=== PATIENT | female | born 1975 | race Caucasian/White ===

== ENCOUNTER 2017-11-22 06:39 | Day surgery (SDC) | payer MEDICARE, MEDICAID ==
[2017-11-22] MEDS ORDERED: Lactated Ringers 1,000 ML IV SCH (07:15)
[2017-11-22] MEDS ORDERED: Sodium Chloride 0.9% 10 ML Syringe FLUSH PRN (07:15)
[2017-11-22] MEDS ORDERED: Midazolam 1 MG/ML 2 ML SDV IV ONE (08:52)
[2017-11-22] MEDS ORDERED: Propofol 200 MG/20 ML SDV IV ONE (08:52)
--- NOTE | 2017-11-22 08:54 | PCM.HPR ---
H & P Addendum review - H & P Addendum Review Date of Original H & P: 11/19/17 Date Reviewed: 11/22/17 Time Reviewed: 08:54 Patient was Examined: No Changes (No further bleeding over the weekend)
--- NOTE | 2017-11-22 09:16 | PCM.OPNOTE ---
- General Post-Op/Procedure Note Date of Surgery/Procedure: 11/22/17 Operative Procedure(s): Colonoscopy Findings: Normal Pre Op Diagnosis: Hematochezia Post-Op Diagnosis: Same Anesthesia Technique: MAC Primary Surgeon: Matthew Medellin Anesthesia Provider: Winnie Koenig Complications: None Condition: Good
[2017-11-22 11:22] VITALS: BP 92/65
--- NOTE | 2017-11-22 14:10 | OR ---
DATE OF OPERATION: 11/22/2017 SURGEON: Matthew Medellin MD PREOPERATIVE DIAGNOSIS: Hematochezia. POSTOPERATIVE DIAGNOSIS: Normal colonoscopy. PROCEDURE PERFORMED: Colonoscopy. ANESTHESIA: IV sedation. DESCRIPTION OF PROCEDURE: The patient was brought to the procedure room, where she was placed on her left side and IV sedation administered. Digital rectal exam was performed, which was normal. The colonoscope was inserted and advanced to the level of the cecum without difficulty. Cecal position was confirmed by identifying the appendiceal lumen and ileocecal valve. Prep was good and surfaces were well visualized. Upon withdrawing the scope, the ascending, transverse, and descending colon were normal in appearance. The sigmoid colon and rectum were normal. Retroflexion was normal. There were no enlarged internal hemorrhoids or other sources of bleeding identified. Air was removed and the scope withdrawn. The patient tolerated the procedure well and returned to recovery in stable condition. Recommend routine colon screening at age 51. /[id number] CHIQUITA/ABILIO
== END 2017-11-22 11:00 | disposition home or self-care (01) ==
LOC: FB.SDS 06:39
PROVIDERS: ATTEND Surgery
DX: K92.1 Melena (principal); Z88.0 Allergy status to penicillin; Z88.8 Allergy status to other drugs, medicaments and biological substances; Z79.899 Other long term (current) drug therapy
CPT/HCPCS: 45378; 81025; J7120; 00811-QZ; J2250; J2704

== ENCOUNTER 2020-08-27 06:15 | Emergency (ER) | payer MEDICARE, MEDICAID ==
--- NOTE | 2020-08-27 07:18 | EDM.PDOC ---
ED HPI GENERAL MEDICAL PROBLEM - General Chief Complaint: Neurological Problem Stated Complaint: Seizure Time Seen by Provider: 08/27/20 07:11 Source of Information: Reports: Other (Caregiver) History Limitations: Reports: Other (Down's syndrome) - History of Present Illness INITIAL COMMENTS - FREE TEXT/NARRATIVE: Patient was sitting on the floor watching TV this morning at 0530. According to the [facility] staff, patient then made a gurgling sound, tipped over to the left striking her head on the floor three times, then had what appeared to be tonic clonic movements for 2 minutes. Caregiver who is at bedside states she has done this sort of thing numerous times in the past. Patient has a history of Down's Syndrome and pseudoseizures. Onset: Today Onset Date: 08/27/20 Onset Time: 05:30 Location: Reports: Head - Related Data Allergies Allergy/AdvReac Type Severity Reaction Status Date / Time Penicillins Allergy Hives Verified 08/27/20 08:21 phenytoin sodium Allergy Go, Edema Verified 08/27/20 08:20 [From Dilantin] phenytoin sodium extended Allergy Rash, Edema Verified 08/27/20 08:20 [From Dilantin] Seasonal Allergies Allergy Runny Uncoded 08/27/20 08:20 nose, Sneezing, Watery eyes Home Meds: Home Meds Cetirizine [ZyrTEC] 10 mg PO DAILY 08/07/15 [History] Levothyroxine [Synthroid] 50 mcg PO ACBREAKFAST 08/07/15 [History] Omeprazole 20 mg PO ACBREAKFAST 08/07/15 [History] Triamcinolone Acetonide [Kenalog 0.1% Crm] 1 applic TOP BID PRN 11/19/17 [History] . Adult Multivitamin Gummies 2 tab CHEW DAILY 08/27/20 [History] .Calcium 600 Mg 1 tab PO BID 08/27/20 [History] .Fluticasone Prop 50 Mcg Aston 1 spray NASBOTH DAILY 08/27/20 [History] Alendronate Sodium [Fosamax] 70 mg PO Q7D 08/27/20 [History] Bisacodyl [Laxative Suppository] 10 mg RC DAILY PRN 08/27/20 [History] Chlorhexidine Gluconate 4% [Hibiclens] 1 applic TOP BID 08/27/20 [History] Cholecalciferol (Vitamin D3) [Vitamin D3] 400 unit PO BIDMEALS 08/27/20 [History] Diphenhyd/Lidocaine/Nystatin [First-Bxn Mouthwash] 1 applic TOP QID 08/27/20 [History] Docusate Sodium [Stool Softener] 10 ml PO BID 08/27/20 [History] Folic Acid 1 mg PO ASDIRECTED 08/27/20 [History] Ketoconazole [Ketoconazole 2%] 1 applic TOP Q7D 08/27/20 [History] Methotrexate 10 mg PO Q7D 08/27/20 [History] Mirtazapine 45 mg PO BEDTIME 08/27/20 [History] QUEtiapine [SEROquel] 300 mg PO BEDTIME 08/27/20 [History] polyethylene glycoL 3350 [Gavilax] 17 gm PO DAILY 08/27/20 [History] traZODone 100 mg PO BEDTIME 08/27/20 [History] Past Medical History Other HEENT History: TEAR DUCT SURGERY Other Cardiovascular History: CONGENITAL HEART SURGERY Respiratory History: Reports: Asthma Gastrointestinal History: Reports: GERD Neurological History: Reports: Other (See Below) Other Neuro History: DOWN SYNDROME, pseudoseizures Endocrine/Metabolic History: Reports: Hypothyroidism Dermatologic History: Reports: Other (See Below) Other Dermatologic History: DERMATITIS ON FACE - Past Surgical History HEENT Surgical History: Reports: Myringotomy w Tube(s), Other (See Below) Other HEENT Surgeries/Procedures: TEAR DUCT SURGERY Cardiovascular Surgical History: Reports: Other (See Below) Other Cardiovascular Surgeries/Procedures: LEAKY VALVE AN Musculoskeletal Surgical History: Reports: Other (See Below) Other Musculoskeletal Surgeries/Procedures:: BUNIONECTOMY LT FOOT Social & Family History - Family History Family Medical History: Noncontributory - Caffeine Use Caffeine Use: Reports: None ED ROS GENERAL - Review of Systems Review Of Systems: Unable To Obtain Reason Not Obtained: Intellectual Disability ED EXAM, GENERAL - Physical Exam Exam: See Below Exam Limited By: No Limitations General Appearance: Alert, WD/WN, No Apparent Distress Eye Exam: Bilateral Eye: EOMI, PERRL Nose: Normal Inspection Throat/Mouth: No Airway Compromise Head: Normocephalic, Other (Left forehead swelling) Neck: Non-Tender Respiratory/Chest: No Respiratory Distress, Lungs Clear, Normal Breath Sounds Cardiovascular: Regular Rate, Rhythm, No Murmur GI/Abdominal: Normal Bowel Sounds, Soft, Non-Tender, No Distention Back Exam: Normal Inspection Extremities: Normal Inspection, Normal Range of Motion Neurological: Alert, No Motor/Sensory Deficits Skin Exam: Warm, Dry, Intact #1 Interpretation EKG Date: 08/27/20 Time: 07:38 Rhythm: NSR Rate (Beats/Min): 63 Overton: Normal P-Wave: Present QRS: Other (RBBB and LAFB) ST-T: Other (No ST elevation per [facility] (Dr. Peace)) #2 Interpretation EKG Date: 08/27/20 Time: 10:27 Rhythm: NSR Rate (Beats/Min): 76 Overton: Normal P-Wave: Present QRS: Other (RBBB and LAFB) ST-T: Elevated (probable normal early repolarization pattern) QT: Normal Comparison: No Change (from EKG #1 done earlier today) Course - Vital Signs Last Recorded V/S: Last Vital Signs Temp 35.3 C L 08/27/20 06:20 Pulse 70 08/27/20 06:20 Resp 16 08/27/20 06:20 BP 94/38 L 08/27/20 06:20 Pulse Ox 100 08/27/20 06:20 - Orders/Labs/Meds Orders: Active Orders 24 hr Category Date Time Status EKG Documentation Completion [RC] ASDIRECTED Care 08/27/20 07:18 Active EKG Documentation Completion [RC] ASDIRECTED Care 08/27/20 08:56 Active Cervical Spine wo Cont [CT] Stat Exams 08/27/20 07:10 Taken Head wo Cont [CT] Stat Exams 08/27/20 07:10 Taken UA W/MICROSCOPIC [URIN] Stat Lab 08/27/20 06:44 Ordered EKG 12 Lead [EK] Stat Ther 08/27/20 07:18 Ordered EKG 12 Lead [EK] Urgent Ther 08/27/20 10:00 Ordered Labs: Laboratory Tests 08/27/20 08/27/20 08/27/20 Range/Units 06:55 06:55 06:55 WBC 4.8 (4.5-12.0) X10-3/uL RBC 3.53 (3.23-5.20) x10(6)uL Hgb 12.4 (11.5-15.5) g/dL Hct 36.1 (30.0-51.3) % MCV 102.2 H (80-96) fL MCH 35.1 H (27.7-33.6) pg MCHC 34.4 (32.2-35.4) g/dL RDW 13.6 (11.5-15.5) % Plt Count 183 (125-369) X10(3)uL MPV 8.2 (7.4-10.4) fL Neut % (Auto) 57.4 (46-82) % Lymph % (Auto) 34.2 (13-37) % Griggs % (Auto) 6.8 (4-12) % Eos % (Auto) 1 (1.0-5.0) % Baso % (Auto) 1 (0-2) % Neut # (Auto) 2.8 (1.6-8.3) # Lymph # (Auto) 1.6 (0.6-5.0) # Griggs # (Auto) 0.3 (0.0-1.3) # Eos # (Auto) 0.0 (0.0-0.8) # Baso # (Auto) 0.0 (0.0-0.2) # Sodium 141 (135-145) mmol/L Potassium 3.9 (3.5-5.3) mmol/L Chloride 104 (100-110) mmol/L Carbon Dioxide 29 (21-32) mmol/L BUN 11 (7-18) mg/dL Creatinine 0.9 (0.55-1.02) mg/dL Est Cr Clr Drug Dosing TNP Estimated GFR (MDRD) > 60 (>60) BUN/Creatinine Ratio 12.2 (9-20) Glucose 95 (80-116) mg/dL Calcium 8.4 L (8.6-10.2) mg/dL Total Bilirubin 0.5 (0.1-1.3) mg/dL AST 31 H (5-25) IU/L ALT 34 (12-36) U/L Alkaline Phosphatase 46 L (56-112) IU/L Troponin I 8.6 (4.0-60.3) pg/mL Total Protein 6.9 (6.0-8.0) g/dL Albumin 3.2 L (3.5-5.2) g/dL Globulin 3.7 g/dL Albumin/Globulin Ratio 0.9 10//20 Range/Units 10:34 WBC (4.5-12.0) X10-3/uL RBC (3.23-5.20) x10(6)uL Hgb (11.5-15.5) g/dL Hct (30.0-51.3) % MCV (80-96) fL MCH (27.7-33.6) pg MCHC (32.2-35.4) g/dL RDW (11.5-15.5) % Plt Count (125-369) X10(3)uL MPV (7.4-10.4) fL Neut % (Auto) (46-82) % Lymph % (Auto) (13-37) % Griggs % (Auto) (4-12) % Eos % (Auto) (1.0-5.0) % Baso % (Auto) (0-2) % Neut # (Auto) (1.6-8.3) # Lymph # (Auto) (0.6-5.0) # Griggs # (Auto) (0.0-1.3) # Eos # (Auto) (0.0-0.8) # Baso # (Auto) (0.0-0.2) # Sodium (135-145) mmol/L Potassium (3.5-5.3) mmol/L Chloride (100-110) mmol/L Carbon Dioxide (21-32) mmol/L BUN (7-18) mg/dL Creatinine (0.55-1.02) mg/dL Est Cr Clr Drug Dosing Estimated GFR (MDRD) (>60) BUN/Creatinine Ratio (9-20) Glucose (80-116) mg/dL Calcium (8.6-10.2) mg/dL Total Bilirubin (0.1-1.3) mg/dL AST (5-25) IU/L ALT (12-36) U/L Alkaline Phosphatase (56-112) IU/L Troponin I 8.8 (4.0-60.3) pg/mL Total Protein (6.0-8.0) g/dL Albumin (3.5-5.2) g/dL Globulin g/dL Albumin/Globulin Ratio - Radiology Interpretation Free Text/Narrative:: CT Head s/ contrast: IMPRESSION: No acute bleed or mass or stroke is shown. No fracture. There is diffuse underlying cerebral atrophy. Finalized by: Michael Gates MD on 08/27/2020 8:[address] C-spine s/ contrast: IMPRESSION: I do not see an abnormality related to the recent trauma. Specifically, no acute bony fracture or abnormal soft tissue swelling. There are diffuse degenerative change as outlined above. The patient likely has spinal canal stenosis at the C4-5 level. If the patient has persistent symptoms referable to the cervical spine or if there is any concern for possible underlying myelopathy or cervical spinal cord injury/contusion, consider an MRI scan for further evaluation. There is some generalized neural foraminal narrowing as outlined above. No level has a high-grade neural foraminal stenosis however. Finalized by: Michael Gates MD on 08/27/2020 8:46 AM CDT - Re-Assessments/Exams Free Text/Narrative Re-Assessment/Exam: 08/27/20 10:[address] Peace ([facility]), he did not believe patient's EKG was consistent with STEMI. 08/27/20 11:07 No seizure activity noted in the ED. Mental status at baseline. Departure - Departure Time of Disposition: 11:07 Disposition: Home, Self-Care 01 Condition: Good Clinical Impression: Syncope Qualifiers: Syncope type: unspecified Qualified Code(s): R55 - Syncope and collapse Minor head injury Qualifiers: Encounter type: initial encounter Qualified Code(s): S09.90XA - Unspecified injury of head, initial encounter - Discharge Information *PRESCRIPTION DRUG MONITORING PROGRAM REVIEWED*: No *COPY OF PRESCRIPTION DRUG MONITORING REPORT IN PATIENT RONEY: Not Applicable Instructions: Head Injury, Adult, [id number], Syncope, [id number] Referrals: Precious Pires NP [Primary Care Provider] - 2 Days Forms: ED Department Discharge Additional Instructions: Follow up with your primary physician in 2-3 days. Return to the ER with any concerns. Sepsis Event Note (ED) - Focused Exam Vital Signs: Vital Signs Temp Pulse Resp BP Pulse Ox 08/27/20 06:20 35.3 C L 70 16 94/38 L 100 - My Orders Last 24 Hours: My Active Orders 08/27/20 07:10 Cervical Spine wo Cont [CT] Stat Head wo Cont [CT] Stat 08/27/20 07:18 EKG Documentation Completion [RC] ASDIRECTED EKG 12 Lead [EK] Stat 08/27/20 08:56 EKG Documentation Completion [RC] ASDIRECTED 08/27/20 10:00 EKG 12 Lead [EK] Urgent - Assessment/Plan Last 24 Hours: My Active Orders 08/27/20 07:10 Cervical Spine wo Cont [CT] Stat Head wo Cont [CT] Stat 08/27/20 07:18 EKG Documentation Completion [RC] ASDIRECTED EKG 12 Lead [EK] Stat 08/27/20 08:56 EKG Documentation Completion [RC] ASDIRECTED 08/27/20 10:00 EKG 12 Lead [EK] Urgent
[2020-08-27 12:53] VITALS: BP 134/111; PULSE 87
== END 2020-08-27 11:21 | disposition home or self-care (01) ==
LOC: FB.ED 06:15
DX: S09.90XA Unspecified injury of head, initial encounter (principal); R55 Syncope and collapse; J45.909 Unspecified asthma, uncomplicated; K21.9 Gastro-esophageal reflux disease without esophagitis; Q90.9 Down syndrome, unspecified; E03.9 Hypothyroidism, unspecified; Z88.0 Allergy status to penicillin; Z88.8 Allergy status to other drugs, medicaments and biological substances; Z91.048 Other nonmedicinal substance allergy status; Z79.899 Other long term (current) drug therapy; W22.8XXA Striking against or struck by other objects, initial encounter
CPT/HCPCS: 36415; 70450; 72125; 80053; 84484; 85025; 93005; 99285-25